=== PATIENT | male | born 1980 | race African-American/Black ===

== ENCOUNTER 2017-04-29 16:35 | Inpatient (IN) | payer MEDICAID, OTHER ==
[~2017-04-29] VITALS: Ht 185.4 cm; Wt 78.0 kg
[~2017-04-29 16:35] MED LIST: DIVA500T35 PO; LITH300C3 PO; QUET400T PO; RISP3 PO
[2017-04-29] MEDS ORDERED: DiphenhydrAMINE HCL 50 MG/ML VIAL IM ONE (17:30)
[2017-04-29] MEDS ORDERED: HALOPERIDOL LACTATE 5 MG/ML VIAL IM ONE (17:30)
[2017-04-29] MEDS ORDERED: LORazepam 2 MG/ML VIAL IM ONE (17:30)
[2017-04-29] MEDS ORDERED: HALOPERIDOL 5 MG TABLET PO ONE (18:15)
[2017-04-29] MEDS ORDERED: LORazepam 2 MG/ML VIAL IVP ONE (18:15)
[2017-04-29 18:33] LABS: BASOPHILS % (AUTO) 0.7 % (0.0-2.0); HEMATOCRIT 42.1 % (41-53); HEMOGLOBIN 14.3 g/dL (13.5-17.5); LYMPHOCYTES # (AUTO) 3.1 K/uL (1.0-4.8); LYMPHOCYTES % (AUTO) 50.9 % (22.0-44.0); MEAN CORPUSCULAR HEMOGLOBIN 31.7 pg (26.0-34.0); MEAN CORPUSCULAR VOLUME 93 fL (80-100); MONOCYTES # (AUTO) 0.4 K/uL (0.1-1.0); NEUTROPHILS # (AUTO) 2.3 K/uL (1.8-7.7); NEUTROPHILS % (AUTO) 38.4 % (40.0-70.0); PLATELET COUNT (AUTO) 215 K/uL (150-450); RED BLOOD CELL COUNT(AUTO) 4.52 MIL/uL (4.50-5.90); RED CELL DISTRIBUTION WIDTH 12.9 % (11.5-14.5)
[2017-04-29 18:50] LABS: ANION GAP 10 mmol/L (8-16); CALCIUM, TOTAL 9.2 mg/dL (8.8-10.5); CARBON DIOXIDE 26 mmol/L (22-29); CHLORIDE 106 mmol/L (98-107); CREATININE 0.88 mg/dL (0.60-1.30); GLOMERULAR FILTR. RATE CALC > 60 mL/min (>60); POTASSIUM 3.9 mmol/L (3.5-5.1); SODIUM SERUM 142 mmol/L (136-145); UREA NITROGEN, BLOOD 10 mg/dL (7-18)
[2017-04-29 18:56] LABS: ALANINE AMINOTRANSFERASE 22 U/L (12-78); ALBUMIN 3.4 g/dL (3.4-5.0); ASPARTATE AMINOTRANSFERASE 11 U/L (15-37); BILIRUBIN,TOTAL 0.6 mg/dL (0.1-1.0); TOTAL PROTEIN, SERUM 6.6 g/dL (6.4-8.2)
[2017-04-29] MEDS ORDERED: LORazepam 2 MG TABLET PO ONE (19:15)
[2017-04-29] MEDS ORDERED: LORazepam 2 MG TABLET PO PRN (20:30)
[2017-04-29] MEDS ORDERED: HALOPERIDOL 5 MG TABLET PO PRN (20:30)
[2017-04-29] MEDS ORDERED: ZOLPIDEM TARTRATE 10 MG TABLET PO PRN (20:30)
[2017-04-30 00:53] VITALS: BP 108/69
[2017-04-30] MEDS ORDERED: INFLUENZA VIRUS VACCINE QVS 2017-18 (3YR+)/PF 60 MCG/0.5 ML SYRINGE IM ONE (01:00)
[2017-04-30 07:06] LABS: CHOL/HDL RATIO 3.8 (4.2-7.3)
[2017-04-30 08:58] VITALS: BP 120/68
[2017-04-30 16:59] VITALS: BP 108/55
[2017-04-30 17:47] VITALS: BP 131/76
[2017-04-30] MEDS ORDERED: IBUPROFEN 400 MG TABLET PO PRN (19:30)
[2017-04-30] MEDS ORDERED: ACETAMINOPHEN 325 MG TABLET PO PRN (19:30)
[2017-05-01 10:19] VITALS: BP 115/69
[2017-05-01] MEDS: LITHIUM CARBONATE 300 MG CAPSULE PO SCH (16:34)
[2017-05-01] MEDS: RisperiDONE 3 MG TABLET PO SCH (16:34)
[2017-05-01] MEDS: DIVALPROEX SODIUM 500 MG DR TABLET PO SCH (16:34)
[2017-05-01 16:43] VITALS: BP 110/62
[2017-05-02 07:25] LABS: THYROID STIMULATING HORMONE 0.17 uIU/mL (0.36-3.74)
[2017-05-02 08:44] VITALS: BP 108/59
[2017-05-02] MEDS: LITHIUM CARBONATE 300 MG CAPSULE PO SCH ×2 (08:49→17:03)
[2017-05-02] MEDS: DIVALPROEX SODIUM 500 MG DR TABLET PO SCH ×2 (08:49→17:03)
[2017-05-02] MEDS: RisperiDONE 3 MG TABLET PO SCH ×2 (08:49→17:03)
[2017-05-02 16:00] VITALS: BP 115/64
[2017-05-03] MEDS: LITHIUM CARBONATE 300 MG CAPSULE PO SCH ×2 (08:09→16:41)
[2017-05-03] MEDS: DIVALPROEX SODIUM 500 MG DR TABLET PO SCH ×2 (08:09→16:41)
[2017-05-03] MEDS: RisperiDONE 3 MG TABLET PO SCH ×2 (08:10→16:41)
[2017-05-03 08:24] VITALS: BP 108/77
[2017-05-03 16:00] VITALS: BP 108/65
== END 2017-05-03 18:55 | disposition home or self-care (01) | DRG 750 ==
LOC: EMS 16:37 → 3EC 20:24
PROVIDERS: ADMIT Psychiatry & Neurology Psychiatry; ATTEND Psychiatry & Neurology Psychiatry
DX: F25.9 Schizoaffective disorder, unspecified (principal); F10.10 Alcohol abuse, uncomplicated; F17.200 Nicotine dependence, unspecified, uncomplicated; Z79.899 Other long term (current) drug therapy; Z28.21 Immunization not carried out because of patient refusal
CPT/HCPCS: 83036; 84443; 99285; G0480

== ENCOUNTER 2020-01-13 11:01 | Emergency (ER) | payer OTHER ==
[~2020-01-13] VITALS: Ht 180.3 cm; Wt 78.0 kg
[~2020-01-13 11:01] MED LIST changes: +DIVA-112 PO; -DIVA500T35 PO; -QUET400T PO; -RISP3 PO; +RISP3TAB14 PO
[2020-01-13 12:21] LABS: AMPHET/METH SCREEN,URINE NEGATIVE (NEGATIVE); BARBITURATE SCREEN, URINE NEGATIVE (NEGATIVE); BENZODIAZEPINES SCREEN,URINE NEGATIVE (NEGATIVE); CANNABINOID SCREEN,URINE NEGATIVE (NEGATIVE); METHADONE SCREEN, URINE NEGATIVE (NEGATIVE); OPIATE SCREEN,URINE NEGATIVE (NEGATIVE)
[2020-01-13 12:23] LABS: PHENCYCLIDINE SCREEN,URINE NEGATIVE (NEGATIVE)
[2020-01-13 12:51] LABS: COCAINE SCREEN,URINE NEGATIVE (NEGATIVE)
[2020-01-13 13:30] VITALS: BP 128/78
== END 2020-01-13 13:40 | disposition home or self-care (01) ==
LOC: EMS 11:04
DX: F25.9 Schizoaffective disorder, unspecified (principal); F17.210 Nicotine dependence, cigarettes, uncomplicated; Z79.899 Other long term (current) drug therapy

== ENCOUNTER 2020-10-15 04:54 | Emergency (ER) | payer OTHER ==
[~2020-10-15] VITALS: Ht 193 cm; Wt 81.8 kg
[~2020-10-15 04:54] MED LIST changes: -RISP3TAB14 PO; +RISP3TAB35 PO
[2020-10-15 04:56] VITALS: BP 111/75
[2020-10-15] MEDS ORDERED: DiphenhydrAMINE HCL 25 MG CAPSULE PO ONE (05:15)
[2020-10-15] MEDS ORDERED: HALOPERIDOL 5 MG TABLET PO ONE (05:15)
== END 2020-10-15 05:45 | disposition left against medical advice (07) ==
LOC: EMS 04:56
DX: F20.0 Paranoid schizophrenia (principal); F17.210 Nicotine dependence, cigarettes, uncomplicated; Z79.899 Other long term (current) drug therapy
CPT/HCPCS: 99283; 99284

== ENCOUNTER 2021-05-23 23:49 | Emergency (ER) | payer OTHER ==
[~2021-05-23] VITALS: Ht 188 cm; Wt 77.3 kg
[2021-05-24 00:05] VITALS: BP 112/59
== END 2021-05-24 01:49 | disposition left against medical advice (07) ==
LOC: EMS 23:49
DX: R44.0 Auditory hallucinations (principal); Z53.21 Procedure and treatment not carried out due to patient leaving prior to being seen by health care provider

== ENCOUNTER 2021-06-12 12:17 | Emergency (ER) | payer OTHER ==
[~2021-06-12] VITALS: Ht 188 cm; Wt 79.5 kg
[2021-06-12 13:36] LABS: BASOPHILS % (AUTO) 0.6 % (0.0-2.0); EOSINOPHILS % (AUTO) 1.4 % (1.0-6.0); HEMOGLOBIN 13.6 g/dL (13.5-17.5); LYMPHOCYTES # (AUTO) 1.3 K/uL (1.0-4.8); LYMPHOCYTES % (AUTO) 34.6 % (22.0-44.0); MEAN CORPUSCULAR HEMOGLOBIN 30.2 pg (26.0-34.0); MEAN CORPUSCULAR HGB CONC 33.9 G/dL (31.0-37.0); MEAN CORPUSCULAR VOLUME 89 fL (80-100); MONOCYTES # (AUTO) 0.3 K/uL (0.1-1.0); MONOCYTES % (AUTO) 8.7 % (2.0-9.0); NEUTROPHILS # (AUTO) 2.1 K/uL (1.8-7.7); NEUTROPHILS % (AUTO) 54.7 % (40.0-70.0); PLATELET COUNT (AUTO) 215 K/uL (150-450); RED BLOOD CELL COUNT(AUTO) 4.49 MIL/uL (4.50-5.90); RED CELL DISTRIBUTION WIDTH 13.6 % (11.5-14.5)
[2021-06-12 13:52] LABS: ANION GAP 10 mmol/L (8-16); CALCIUM, TOTAL 8.7 mg/dL (8.8-10.5); CARBON DIOXIDE 26 mmol/L (22-29); CHLORIDE 104 mmol/L (98-107); CREATININE 0.97 mg/dL (0.60-1.30); GLOMERULAR FILTR. RATE CALC > 60 mL/min (>60); GLUCOSE,RANDOM 99 mg/dL (70-110); POTASSIUM 3.4 mmol/L (3.5-5.1); SODIUM SERUM 140 mmol/L (136-145); UREA NITROGEN, BLOOD 12 mg/dL (7-18)
[2021-06-12 13:55] VITALS: BP 126/80
[2021-06-12 13:56] LABS: LITHIUM < 0.20 mmol/L (0.60-1.20)
[2021-06-12 14:03] LABS: ALANINE AMINOTRANSFERASE 18 U/L (12-78); ALBUMIN 3.6 g/dL (3.4-5.0); ALKALINE PHOSPHATASE 67 U/L (46-116); ASPARTATE AMINOTRANSFERASE 13 U/L (15-37); BILIRUBIN,TOTAL 0.6 mg/dL (0.1-1.0)
[2021-06-12 14:04] LABS: VALPROIC ACID < 3 mcg/mL (50-100)
== END 2021-06-12 14:48 | disposition home or self-care (01) ==
LOC: EMS 12:24
DX: F12.90 Cannabis use, unspecified, uncomplicated (principal); R42 Dizziness and giddiness; F20.9 Schizophrenia, unspecified; F17.210 Nicotine dependence, cigarettes, uncomplicated; Z79.899 Other long term (current) drug therapy
CPT/HCPCS: 36415; 80053; 80164; 80178; 82962; 85025; 93005; 99284; G0480

== ENCOUNTER 2021-07-27 01:49 | Emergency (ER) | payer OTHER ==
[~2021-07-27] VITALS: Ht 188 cm; Wt 88.6 kg
[2021-07-27] MEDS ORDERED: OLAN2.5T29 PO (02:07)
[2021-07-27 02:52] VITALS: BP 129/74
[2021-07-27] MEDS ORDERED: PERM60CR19 TP (02:59)
[2021-07-27] MEDS ORDERED: TRIA15CR49 TP (02:59)
[2021-07-27] MEDS ORDERED: DIPH25CA53 PO (02:59)
[2021-07-27] MEDS ORDERED: DiphenhydrAMINE HCL 25 MG CAPSULE PO ONE (03:00)
[2021-07-27] MEDS ORDERED: PERMETHRIN 5% 60 GM CREAM TP ONE (03:00)
== END 2021-07-27 03:47 | disposition home or self-care (01) ==
LOC: EMS 01:51
DX: L30.9 Dermatitis, unspecified (principal); F20.0 Paranoid schizophrenia; F12.90 Cannabis use, unspecified, uncomplicated; F17.210 Nicotine dependence, cigarettes, uncomplicated; Z79.899 Other long term (current) drug therapy
CPT/HCPCS: 99283

== ENCOUNTER 2022-06-14 00:19 | Emergency (ER) | payer OTHER ==
[~2022-06-14] VITALS: Ht 185.4 cm; Wt 90.9 kg
[~2022-06-14 00:19] MED LIST changes: +DIPH25CA53 PO; -DIVA-112 PO; -LITH300C3 PO; +OLAN2.5T29 PO; +PERM60CR19 TP; +TRIA15CR49 TP
[2022-06-14] MEDS ORDERED: DIPH25CA85 PO (01:42)
[2022-06-14] MEDS ORDERED: HYDR30CR39 TP (01:42)
[2022-06-14] MEDS ORDERED: DiphenhydrAMINE HCL 25 MG CAPSULE PO ONE (02:00)
[2022-06-14] MEDS ORDERED: HYDROCORTISONE 1% 120 ML LOTION TP ONE (02:00)
[2022-06-14 02:19] VITALS: BP 130/80
== END 2022-06-14 05:16 | disposition home or self-care (01) ==
LOC: EMS 00:20
DX: R21 Rash and other nonspecific skin eruption (principal); F20.0 Paranoid schizophrenia; F32.A Depression, unspecified; F12.90 Cannabis use, unspecified, uncomplicated; F17.210 Nicotine dependence, cigarettes, uncomplicated
CPT/HCPCS: 99283

== ENCOUNTER 2022-07-06 11:21 | Emergency (ER) | payer OTHER ==
[~2022-07-06] VITALS: Ht 180.3 cm; Wt 79.5 kg
[~2022-07-06 11:21] MED LIST changes: +DIPH25CA85 PO; +HYDR30CR39 TP
[2022-07-06 11:41] VITALS: BP 116/81
[2022-07-06] MEDS ORDERED: OLAN10 PO (12:03)
[2022-07-06] MEDS ORDERED: PALI234D IM (12:03)
[2022-07-06] MEDS ORDERED: PredniSONE 20 MG TABLET PO ONE (12:45)
[2022-07-06] MEDS ORDERED: DiphenhydrAMINE HCL 25 MG CAPSULE PO ONE (12:45)
[2022-07-06] MEDS ORDERED: PRED-554 PO (13:38)
[2022-07-06] MEDS ORDERED: DIPH25TA51 PO (13:43)
== END 2022-07-06 16:46 | disposition home or self-care (01) ==
LOC: EMS 11:22
DX: L29.9 Pruritus, unspecified (principal); F20.0 Paranoid schizophrenia; F32.A Depression, unspecified; F17.210 Nicotine dependence, cigarettes, uncomplicated; F12.90 Cannabis use, unspecified, uncomplicated
CPT/HCPCS: 99283; J7512

== ENCOUNTER 2022-08-30 15:23 | Emergency (ER) | payer OTHER ==
[~2022-08-30] VITALS: Ht 182.9 cm; Wt 90.1 kg
[~2022-08-30 15:23] MED LIST changes: -DIPH25CA53 PO; +DIPH25TA51 PO; +OLAN10 PO; -OLAN2.5T29 PO; +PALI234D IM; -PERM60CR19 TP; +PRED-554 PO; -RISP3TAB35 PO; -TRIA15CR49 TP
[2022-08-30 19:19] VITALS: BP 100/60
[2022-08-30] MEDS ORDERED: CLIN300C58 PO (19:36)
== END 2022-08-30 19:46 | disposition home or self-care (01) ==
LOC: EMS 15:25
DX: L03.116 Cellulitis of left lower limb (principal); F20.0 Paranoid schizophrenia; F32.A Depression, unspecified
CPT/HCPCS: 99283; Z7502

== ENCOUNTER 2024-03-01 12:09 | Emergency (ER) | payer OTHER ==
[~2024-03-01] VITALS: Ht 185.4 cm; Wt 82.0 kg
[~2024-03-01 12:09] MED LIST changes: +CLIN300C58 PO
[2024-03-01 12:25] VITALS: BP 110/54; PULSE 84; RESP 16; TEMP 98.4; O2SAT 99
== END 2024-03-01 12:52 | disposition home or self-care (01) ==
LOC: EMS 12:11
DX: R10.9 Unspecified abdominal pain (principal); F20.0 Paranoid schizophrenia; Z59.819 Housing instability, housed unspecified; Z79.52 Long term (current) use of systemic steroids
CPT/HCPCS: 99283; Z7502